=== PATIENT | female | born 1980 | race Caucasian/White ===

== ENCOUNTER 2017-02-28 13:56 | Emergency (ER) | payer BC ==
--- NOTE | 2017-02-28 14:59 | UC ---
Upper Extremity HPI - HPI Summary HPI Summary: 36 y/o female presents to the urgent care c/o LF thumb pain on and off since . Pt reports she was playing floor hockey and she got hit with the hockey stick in her thumb. She ice it and took OTC meds and it resolved. About 2 weeks ago her daughter hit the same thumb with a ball and since then, her pain is 5/10 specially on extension. She feels she is unable to hold a cup at times. Pt denies swelling, numbness or tingling over the Rt thumb, fever, SOB, chest pain, N/V/D. - History of Current Complaint Stated Complaint: RIGHT THUMB PAIN Time Seen by Provider: 02/28/17 14:55 Hx Obtained From: Patient Hx Last Menstrual Period: 03/18/16 ?: No Onset/Duration: Sudden Onset, Lasting Weeks, Still Present Severity Initially: Moderate Severity Currently: Moderate Pain Intensity: 5 Pain Scale Used: 0-10 Numeric Location Of Pain: Is Discrete @ - Base of the RT thumb Character: Throbbing Aggravating Factor(s): Movement, Extension Alleviating Factor(s): Ice, OTC Meds, Rest Associated Signs And Symptoms: Positive: Negative. Negative: Swelling, Redness , Numbness/Tingling - Risk Factors Non-Orthopedic Risk Factor: Negative DVT Risk Factors: Negative Septic Arthritis Risk Factor: Negative - Allergies/Home Medications Allergies/Adverse Reactions: Allergies Allergy/AdvReac Type Severity Reaction Status Date / Time Latex Allergy Rash Verified 02/28/17 15:01 Morphine Allergy Hives Verified 02/28/17 15:01 Home Medications: Home Medications Control Pill 1 tab DAILY 02/28/17 [History Confirmed 02/28/17] PMH/Surg Hx/FS Hx/Imm Hx Previously Healthy: Yes - Surgical History Surgical History: Yes Surgery Procedure, Year, and Place: Cholecystectomy, 2013, [facility] Other Surgical History: Gallbladder taken out. - Family History Known Family History: Positive: None Negative: Respiratory Disease Family History: PT doesn't recall any FMHX - Social History Occupation: Employed Full-time Lives: With Family Alcohol Use: None Substance Use Type: None Smoking Status (MU): Never Smoked Tobacco Review of Systems Constitutional: Negative Skin: Negative Eyes: Negative ENT: Negative Respiratory: Negative Cardiovascular: Negative Gastrointestinal: Negative Genitourinary: Negative Motor: Negative Neurovascular: Negative Musculoskeletal: Other: - LF base of RT thumb with pain Neurological: Negative Psychological: Negative All Other Systems Reviewed And Are Negative: Yes Physical Exam Triage Information Reviewed: Yes Appearance: Well-Appearing, No Pain Distress, Well-Nourished, Obese Vital Signs Reviewed: Yes Eye Exam: Normal Eyes: Positive: Conjunctiva Clear ENT Exam: Normal ENT: Positive: Normal ENT inspection, Hearing grossly normal, Pharynx normal, TMs normal Dental Exam: Normal Neck exam: Normal Neck: Positive: Supple, Nontender, No Lymphadenopathy Respiratory Exam: Normal Respiratory: Positive: Chest non-tender, Lungs clear, Normal breath sounds Cardiovascular Exam: Normal Cardiovascular: Positive: RRR, No Murmur, Pulses Normal, Brisk Capillary Refill Abdominal Exam: Normal Abdomen Description: Positive: Nontender, No Organomegaly, Soft. Negative: CVA Tenderness (R), CVA Tenderness (L) Bowel Sounds: Positive: Present Musculoskeletal: Positive: No Edema, Other: - RT wrist with positive tenderness over the thenar eminence, no swelling or bruising observed. Limited ROM due to pain, specially on hyperextesion. Positve sensation, brisk capillary refill, positive pulses. Neurological Exam: Normal Psychological Exam: Normal Skin Exam: Normal Upper Extremity Course/Dx - Course Course Of Treatment: 36 y/o female presents to the urgent care c/o LF thumb pain on and off since 01/02/2017. Pt reports she was playing floor hockey and she got hit with the hockey stick in her thumb. She ice it and took OTC meds and it resolved. About 2 weeks ago her daughter hit the same thumb with a ball and since then, her pain is 5/10 specially on extension. She feels she is unable to hold a cup at times. Pt denies swelling, numbness or tingling over the Rt thumb, fever, SOB, chest pain, N/V/D. HX obtained. PE abnormal findings : RT wrist with positive tenderness over the thenar eminence, no swelling or bruising observed. Limited ROM due to pain, specially on hyperextesion. Positve sensation, brisk capillary refill, positive pulses. LF thumb X-ray ordered; X- ray read by radiologist. Impression: No acute osseous injury observed. Pt thumb immobilized with a Thumb spica splint, advised RICE, Rx Ibuprofen PO to alleviate symptoms of pain. F/u with orthopedic in 1 week if not improvement of symptoms. Pt understood and agreed. - Differential Dx/Diagnosis Differential Diagnosis/HQI/PQRI: Arthritis, Contusion, Fracture (Closed), Strain , Sprain, Other - contusion Provider Diagnoses: 1- Left thumb pain Discharge - Discharge Plan Condition: Stable Disposition: HOME Prescriptions: Ibuprofen TAB* [Motrin TAB* 800 MG] 800 mg PO Q6H #20 tab Patient Education Materials: Finger Sprain (ED) Referrals: [facility] [Outside] - If Needed Non Staff,Doctor [Medical Doctor] - Olga Shankar MD [Medical Doctor] - 1 Week Additional Instructions: 1-Please take medications as directed to alleviate pain and swelling. 2-Please apply ice, keep your thumb immobilized with the splint. 3- Please f/u with Orthopedic or your PCP in 1 week is not improvement of symptoms for further evaluation and treatment. 4- Your BP today is elevated, please decrease salt in your diet, monitor your BP , if it continues to be elevated please f/y with your PCP for further management.
[2017-02-28 15:03] VITALS: BP 118/69
--- NOTE | 2017-02-28 15:39 | RAD ---
HISTORY: Right base of thumb pain, trauma COMPARISONS: None VIEWS: 2, Frontal and lateral views of the right hand FINDINGS: BONE DENSITY: Normal. BONES: There is no displaced fracture. JOINTS: There is no arthropathy. ALIGNMENT: There is no dislocation. SOFT TISSUES: Unremarkable. OTHER FINDINGS: None. IMPRESSION: NO ACUTE OSSEOUS INJURY. IF SYMPTOMS PERSIST, RECOMMEND REPEAT IMAGING.
== END 2017-02-28 15:50 | disposition home or self-care (01) ==
LOC: UCCORT 13:56
DX: M79.645 Pain in left finger(s) (principal); E66.9 Obesity, unspecified; Z90.49 Acquired absence of other specified parts of digestive tract; Z91.040 Latex allergy status; Z88.5 Allergy status to narcotic agent
CPT/HCPCS: 99213; G0463

== ENCOUNTER 2018-05-30 16:22 | Emergency (ER) | payer BC ==
[2018-05-30 17:45] VITALS: BP 137/81
--- NOTE | 2018-05-30 18:00 | UC ---
UC General HPI - HPI Summary HPI Summary: pt ill last week with head cold that seemed to improve but now has a 1 week hx of worsening cough, chest congestion and sore throat. she admits to some wheezing. no fever or hx asthma. does not feel like her sinus infections. - History of Current Complaint Chief Complaint: UCGeneralIllness Stated Complaint: CONGESTION,RUNNY NOSE,COUGH Time Seen by Provider: 05/30/18 17:45 Hx Obtained From: Patient Hx Last Menstrual Period: 05/03/18 Onset/Duration: Gradual Onset Timing: Constant Pain Intensity: 2 Aggravating: cold air irritates and hurts lungs - Allergy/Home Medications Allergies/Adverse Reactions: Allergies Allergy/AdvReac Type Severity Reaction Status Date / Time Latex, Natural Rubber Allergy Hives Verified 05/30/18 17:43 morphine Allergy Hives Verified 05/30/18 17:43 PMH/Surg Hx/FS Hx/Imm Hx Previously Healthy: Yes - Surgical History Surgical History: Yes Surgery Procedure, Year, and Place: Cholecystectomy, 2014, [facility] Other Surgical History: Gallbladder taken out. - Family History Known Family History: Positive: None Negative: Respiratory Disease Family History: PT doesn't recall any FMHX - Social History Occupation: Employed Full-time Alcohol Use: None Substance Use Type: None Smoking Status (MU): Never Smoked Tobacco - Immunization History Vaccination Up to Date: Yes Review of Systems All Other Systems Reviewed And Are Negative: Yes Constitutional: Positive: Negative Skin: Positive: Negative Eyes: Positive: Negative ENT: Positive: Sore Throat Respiratory: Positive: Cough Cardiovascular: Positive: Negative Gastrointestinal: Positive: Negative Genitourinary: Positive: Negative Motor: Positive: Negative Neurovascular: Positive: Negative Musculoskeletal: Positive: Negative Neurological: Positive: Negative Psychological: Positive: Negative Physical Exam Triage Information Reviewed: Yes Appearance: Well-Appearing Vital Signs: Initial Vital Signs Temp 97 F 05/30/18 17:41 Pulse 83 05/30/18 17:41 Resp 16 05/30/18 17:41 BP 137/81 05/30/18 17:41 Pulse Ox 100 05/30/18 17:41 Vital Signs Reviewed: Yes Eyes: Positive: Conjunctiva Clear ENT: Positive: Pharynx normal, Nasal congestion, TMs normal. Negative: Nasal drainage, Sinus tenderness Neck: Positive: Supple, Nontender, No Lymphadenopathy Respiratory: Positive: No respiratory distress, Decreased breath sounds, Other: - NPC Cardiovascular: Positive: RRR, No Murmur Abdomen Description: Positive: Nontender, No Organomegaly, Soft Bowel Sounds: Positive: Present Musculoskeletal: Positive: ROM Intact Neurological: Positive: Alert Psychological: Positive: Age Appropriate Behavior Skin Exam: Normal Re-Evaluation - Re-Evaluation First Eval Re-Evaluation Time: 18:34 Change: Improved - BETTER AERATION. HAS NEB AT HOME FOR CHILD THUS WILL WRITE FOR NEB SOLUTION FOR THIS PT Course/Dx - Course Course Of Treatment: DURATION OF ILLNES WITH WORSENING RAISES CONCERN FOR BACTERIAL INFECTION THUS WILL TX WITH ANTIBIOTIC - Differential Dx - Multi-Symptom Provider Diagnoses: COUGH. BRONCHOSPASM Discharge - Sign-Out/Discharge Documenting (check all that apply): Patient Departure All imaging exams completed and their final reports reviewed: No Studies - Discharge Plan Condition: Stable Disposition: HOME Prescriptions: Albuterol 2.5MG/3ML (0.083%)* [Ventolin 2.5 MG/3 ML NEB.HINA*] 2.5 mg INH Q6H PRN #1 box PRN Reason: Wheezing Albuterol HFA INHALER* [Ventolin HFA Inhaler*] 2 puff INH Q6H #1 mdi Azithromycin TAB* [Zithromax TAB (Z-SHEREE) 250 mg #6 tabs] 2 tab PO .TODAY, THEN 1 DAILY #1 sheree Patient Education Materials: Acute Cough (ED), Bronchospasm (ED) Referrals: Esther Hughes MD [Primary Care Provider] - 7 Days - Billing Disposition and Condition Condition: STABLE Disposition: Home
[2018-05-30] MEDS ORDERED: Albuterol 2.5 MG/3 ML NEB.SOL* (0.083%) INH ONE (18:13)
== END 2018-05-30 18:44 | disposition home or self-care (01) ==
LOC: UCCORT 16:22
DX: R05 Cough (principal); J98.01 Acute bronchospasm; R09.81 Nasal congestion; Z88.5 Allergy status to narcotic agent; Z91.040 Latex allergy status
CPT/HCPCS: 99212; G0463